=== PATIENT | female | born 1960 | race Caucasian/White ===

== ENCOUNTER 2017-12-14 14:13 | Emergency (ER) | payer MEDICARE, MEDICAID ==
[~2017-12-14] VITALS: Ht 172.7 cm; Wt 72.7 kg
[2017-12-14 14:21] VITALS: BP 97/58
[2017-12-14] MEDS ORDERED: AMOX-580 PO (14:59)
== END 2017-12-14 15:11 | disposition home or self-care (01) ==
LOC: ER 14:13
DX: J02.0 Streptococcal pharyngitis (principal); F17.200 Nicotine dependence, unspecified, uncomplicated; Z79.2 Long term (current) use of antibiotics
CPT/HCPCS: 87880; 99283

== ENCOUNTER 2017-12-17 08:36 | Emergency (ER) | payer MEDICARE, MEDICAID ==
[~2017-12-17] VITALS: Ht 172.7 cm; Wt 67.0 kg
[~2017-12-17 08:36] MED LIST: AMOX-580 PO
[2017-12-17 08:46] VITALS: BP 117/78
[2017-12-17] MEDS ORDERED: AZIT-57 PO (09:56)
== END 2017-12-17 10:18 | disposition home or self-care (01) ==
LOC: ER 08:36
DX: J02.0 Streptococcal pharyngitis (principal); T36.0X5A Adverse effect of penicillins, initial encounter; Z88.1 Allergy status to other antibiotic agents; Z79.2 Long term (current) use of antibiotics; Y92.89 Other specified places as the place of occurrence of the external cause
CPT/HCPCS: 99283

== ENCOUNTER 2017-12-19 20:54 | Emergency (ER) | payer MEDICARE, MEDICAID ==
[~2017-12-19] VITALS: Ht 172.7 cm; Wt 72.7 kg
[~2017-12-19 20:54] MED LIST changes: +AZIT-57 PO
[2017-12-19] MEDS ORDERED: dexamethasone sod phosphate 10mg/ml inj PO STA (22:08)
[2017-12-19] MEDS ORDERED: azithromycin 250mg tablet PO ONE (22:10)
[2017-12-19] MEDS ORDERED: PHEN30SP9 PO (22:13)
[2017-12-19] MEDS ORDERED: METH4TAB3 PO (22:13)
[2017-12-19 22:47] VITALS: BP 105/65
== END 2017-12-19 22:55 | disposition home or self-care (01) ==
LOC: ER 20:55
DX: J02.9 Acute pharyngitis, unspecified (principal); Z88.1 Allergy status to other antibiotic agents; Z88.8 Allergy status to other drugs, medicaments and biological substances; Z79.899 Other long term (current) drug therapy
CPT/HCPCS: 99283; J1100